=== PATIENT | male | born 1990 | race Caucasian/White ===

== ENCOUNTER 2025-01-02 01:26 | Outpatient (BNV) | payer SELFPAY | END 2025-01-02 11:25 | PROVIDERS: Admitting Provider Psychiatry & Neurology Psychiatry; Visit Provider Radiology Diagnostic Radiology | DX: S69.91XA Unspecified injury of right wrist, hand and finger(s), initial encounter (principal); S69.92XA Unspecified injury of left wrist, hand and finger(s), initial encounter; S00.80XA Unspecified superficial injury of other part of head, initial encounter; R23.3 Spontaneous ecchymoses | CPT/HCPCS: 70150; 73110 ==

== ENCOUNTER 2025-01-02 01:26 | Inpatient (IN) | payer MEDICAID, SELFPAY ==
--- NOTE | ~2025-01-02 | XR_ITS ---
EXAMINATION: X-ray wrist, bilaterally. CLINICAL INFORMATION: Injury. TECHNIQUE: PA, oblique and lateral views. Scaphoid projections, both wrists. COMPARISON: None FINDINGS: The carpal bones are intact. Normal alignment. The metacarpal bones are intact. Distal radius and ulna are intact. No lytic or blastic lesions. No subcutaneous emphysema. XR/XR Wrist Surinder min 3V IMPRESSION: Right no acute fracture or dislocation. Electronically signed by: Jey Gustafson MD 01/02/2025 11:50 AM EDT
--- NOTE | ~2025-01-02 | XR_ITS ---
EXAMINATION: XR FACIAL BONES CLINICAL INFORMATION: Minor Injury Right religious, bruising COMPARISON: None available. TECHNIQUE: AP, lateral, Joshua and Town's view FINDINGS: No acute cortical disruption. No air-fluid levels in the well pneumatized paranasal sinuses. XR/XR facial bones min 3V IMPRESSION: No acute fracture Electronically signed by: Jey Gustafson MD 01/02/2025 11:46 AM EDT
[2025-01-02 01:55] VITALS: BP 151/91; PULSE 82; RESP 16; TEMP 36.5; O2SAT 99; BMI 22.0
--- NOTE | 2025-01-02 05:14 | PC.ADMIT ---
At 0150, Oswaldo who is an Mozambican speaking 34 year old male transferred from [facility] to [facility] on a CV for treatment of psychosis. Pt was brought in via EMS and [place] [employer] who found him on the side of the highway laying on the ground. Pt became erratic and combative which prompted the initiation of 4 point restraint with IM Zyprexa and Valium on arrival to [facility]. (01/01 around 0400) Afterwards, he remained calm, slept, and had no restraints since. Psych history includes him being recently seen at [facility] in [place], [place] where he had a safety plan in place. He called police during a crisis asking to be brought to [facility] where he was seen and discharged about a month ago. ? Skin check completed which revealed bruising, and superficial lacerations on bilateral wrists and ankles from restraints and a large healing scar on his back he reports is unrelated. No physical complaints or pain reported. Tox screen was positive for benzodiazepines and THC, but currently denies any substance use. Reports occasional ETOH use and has no more than one to two drinks at a time. ?I?m not a druggie and I know when to stop, unlike my father.? No signs/symptoms of withdrawal. Reports only smoking around a half a pack/month, expresses desire for smoking cessation. Declined nicotine replacement at this time.? During admission, he is guarded but reports being anxious and that his speech becomes more pressured as anxiety increases, stating, ?You guys will know because sometimes it?s hard for me to keep up with myself.? His speech was normal. Thought process is somewhat disorganized and is easily distracted. He is calm, cooperative, and is short with responses at times but is overall pleasant, stating ?I?ll go wherever you tell me. I?m here to do whatever the process is and follow the rules.?? Reports grief from loss as his trauma history. No known active medical problems, concerns, or on any medications.? The goal for this admission is to establish providers and initiate a medication regimen if needed. Maintained pt safety and placed on 5 minute checks overnight until assessment is completed by the provider. Admission complete, except for signing safety tool, treatment plan, belongings, and phone access for contacts.
[2025-01-02 07:20] VITALS: BP 118/75; PULSE 86; RESP 16; TEMP 36.4; O2SAT 99
--- NOTE | 2025-01-02 08:45 | P.HPPS_ITS ---
HPI Date of Service: 01/02/25 Chief Complaint: Unspecified Psychosis HPI Subjective Notes: Abdullahi Warning Narrative: per crisis eval, pt was BIBA and police [place] having [place] [address]lying down in the position on the side of the road. he was described as erratic and combative, with flight of ideas and repetitive statements. he was restrained on arrival at the ED. he was described as exhibiting paranoia and distraction in ED, as well as disorganized thoughts. per family, pt has been deteriorating, with an assessment at [facility] and also and assessment in [place] [facility] recently. family reports over the past several months he has become paranoid that someone is following him and has the intention to harm his loved ones. he has been calling his people randomly to assure himself that they are safe. per medical eval in ED, pt was given IMs of zyprexa 10 mg and valium 10 mg in ED due to violent, aggressive behaviors. mild metabolic disturbances corrected with IV fluids in ED. on interview with MD at [facility], pt was hyperverbal, grandiose, and paranoid; he was not agitated, aggressive, combative, or violent, however. detailed discussion held re potential araseli Dx and the various medications indicated. abdullahi warning was provided. rationale for observation over the next several days provided, as well as explanation for how his condition may have improved so substantially in the past day or so (IM medication). pt minimized any substance use issues, denying a problem with alcohol (per sister, pt has h/o DUI). he denied any mental illness aside from anxiety, and explained events as people responding poorly to his anxiety attacks. he signed a 3-day notice. he appeared to place trust in his sister, who is a pediatric STEAM DISTRIBUTION SUPERVISOR, and stated he would consult with her about the medications. we agreed to meet again tomorrow to discuss next steps. Past Psychiatric History: hosps: denies prior. per family, pt has been hospitalized in the past. SA: denies SIB: enies outpt: 2018 grief counseling after the loss of an uncle, for 3-4 months. none otherwise. Medical Evaluation Reviewed: Yes PMF Narrative: none Family History: father - alcohol per sister, bipolar disorder on both sides of the family Social History: some college. 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 lives in his own house with his father, aunt, cousin, and a roommate. he reports he is the caregiver for his father. Substance History: tobacco - 5 cigs/day alcohol - 2 drinks twice weekly. per sister pt has h/o AUD. pt acknowledges h/o DUI. cannabis - pt reports none in 3-4 weeks. benzos - denies use. believes positive utox due to his having received valium IM in the ED. denies use of other drugs or substances. Trauma History: denies Diagnostics Vital Signs (24Hr): Vital Signs - 24 hr 01/02/25 01:55 01/02/25 07:20 Temperature 97.7 F 97.6 F Pulse Rate 82 86 Respiratory Rate 16 16 Blood Pressure 151/91 H 118/75 Pulse Oximetry 99 99 Oxygen Delivery Method Room Air Room Air BMI result Body Mass Index 22.0 Meds/Allergies Allergies Allergies Allergy/AdvReac Type Severity Reaction Status Date / Time Unable to Assess Allergy Verified 01/02/25 06:12 Mental Status Exam Mental Status Exam Narrative: adequately dressed and groomed. cooperative. no PMA/PMR. incr rate and amount of speech, decr latency. thoughts generally linear but spontaneously digressive, grandiose, possibly delusional. affect constricted, hyper-intense, non-labile. mood pleasant. denies SI/SIBI/HI/AVH. Assessment & Plan Assessment & Plan (1) Araseli: Status: Acute Code(s): F30.9 - Manic episode, unspecified (2) Alcohol use disorder: Status: Acute Code(s): F10.90 - Alcohol use, unspecified, uncomplicated Plan various mood stabilizers discussed, MD encouraged lithium trial. pt planned to discuss with his sister, who is in the health professions. will reconvene tomorrow re decision and next steps. Patient educated on: diagnosis, medication risk/benefits and substance abuse Reason for continued inpatient stay Substantial Risk for: harm to self, harm to others, inability to function and rapid decompensation Statement Statement: I have reviewed the history and physical and performed a pertinent examination on my patient. No changes have occurred unless specified. If the History and Physical was not performed prior to admission, the Hospitalist's service will be consulted for completing the admission physical. Time Spent With Patient Time: Total time managing care of this patient today __55__ minutes.
--- NOTE | 2025-01-02 10:32 | P.CONHOSP_ITS ---
History of Present Illness Data of Consult Service Date: 01/02/25 Primary Care Provider: Unknown Physician HPI Reason for consult: Medical consult 34-year-old male who was admitted from [facility] after he was brought to the hospital by the state police when he was found curled on the side of the road in a position. He became combative and required chemical and physical restraints. On exam he is calm, cooperative with exam. He denies any shortness of breath, chest pain, dizziness, lightheadedness or any other concerning symptoms except for bruising on both of his wrists as well as the side of his roman catholic. He reports that these injuries occurred while he was being restrained. He has decreased and painful range of motion to the right wrist, able to flex and extend all of his fingers. No obvious deformities noted. The right side of his temporal has a quarter-sized bruise. No increased swelling, no changes in his vision, no headaches no dizziness or any other concerning symptoms. On exam his bicarb was noted to be 8 he received 1 L of IV fluids otherwise his labs were unremarkable. He denies any history of medical problems denies any home medications. Review of Systems Review of Systems: Denies any shortness of breath, chest pain, dizziness, lightheadedness, abdominal pain or discomfort, nausea vomiting or diarrhea PMFSH Social History Household Members: Family Housing: House Do you presently have visiting nurse or other home services: No Patient Tobacco Use Status: Current someday Tobacco user Tobacco use type: Cigarette Smoked in Last 30 Days: Yes e-Cigarette/Vaping Use: Never Used Patient Interested in Nicotine Replacement: No Patient Given Instructions on How to Stop Smoking: Yes Date Education Initiated: 01/02/25 Second Hand Smoke Exposure: No Currently Displaying Signs/Symptoms of Drug Intoxication Withdrawal: No Have you been hit, kicked, punched, or otherwise hurt by someone within the past year? If so, by whom?: No Do you feel safe in your current relationship?: No Current Relationship Is there a partner from a previous relationship who is making you feel unsafe now?: No Are you made to feel afraid or neglected: No Advance Directives: No Advance Directives Information Provided: Yes Do you have thoughts of harming others: None Do you have a plan to hurt others: No Plan Recently lost weight without trying: No How much weight loss: Not applicable Eating poorly because of decreased appetite: No Nutrition screen score: 0 Nutrition Risks: No Nutritional Risk Poor oral hygiene: No Meds Allergies Allergy/AdvReac Type Severity Reaction Status Date / Time Unable to Assess Allergy Verified 01/02/25 06:12 Active Medications: Current Medications Acetaminophen (Acetaminophen 325 Mg Tablet) 650 mg PO Q6H PRN PRN Reason: Headache/Pain, Scale 1-10 Al Hydroxide/Mg Hydroxide (Magnesium Hydrox/Alum Hydrox 30 Ml Oral.Susp) 30 ml PO Q6H PRN PRN Reason: Heartburn/Nausea Hydroxyzine HCl (Hydroxyzine Hcl 25 Mg Tablet) 25 mg PO Q6H PRN PRN Reason: mild anxiety Magnesium Hydroxide (Milk Of Magnesia 30 Ml Oral.Susp) 30 ml PO DAILY PRN PRN Reason: Constipation Nicotine Polacrilex (Nicotine Polacrilex 2 Mg Gum) 4 mg BUCCAL Q2H PRN PRN Reason: Nicotine Cravings Trazodone HCl (Trazodone Hcl 50 Mg Tablet) 50 mg PO BEDTIME MRX1 PRN PRN Reason: Insomnia Physical Exam Vital Signs and Narrative: Vital Signs: Last Vital Signs Temp 97.6 F 01/02/25 07:20 Pulse 86 01/02/25 07:20 Resp 16 01/02/25 07:20 BP 118/75 01/02/25 07:20 Pulse Ox 99 01/02/25 07:20 O2 Del Method Room Air 01/02/25 07:20 BMI result Body Mass Index 22.0 Alert and oriented X3, able to give good history. Neuro: CN II-X11 intact, no deficits, visual acuity intact EYES: PERRLA, EOM intact ENT: Hearing intact, lips moist. No epistaxis Cardiac: S1 S2 RRR, No ectopy Pulmonary: lungs clear to auscultation, No increased WOB. Abdominal: BS active in all 4 quadrants, no guarding or tenderness MSK: Strength 5/5 upper and lower extremities : Deferred Extremities: No edema in lower extremities Psych: mood stable, Quiet and cooperative. Skin: Warm and dry, some scab scratches nose on bilateral wrists, bruising extending from the wrist to the bottom 1/3 of the forearm on both arms Quarter-sized bruise on right roman catholic, no swelling. Assessment and Plan (1) Wrist pain, acute: Status: Acute Plan Psychosis, unspecified Treatment per psychiatric team Bruising to bilateral wrists, history of trauma. Bruising to right temporal Imaging to rule out acute fracture. Tylenol as needed Thank you for allowing me to participate in the care of this patient. Signing off at this time. Please reconsult of any acute concerns or issues arise
[2025-01-02 13:44] LABS: Amphetamine Screen Urine Not Detected (Not Detect); Barbiturates, Urine Not Detected (Not Detect); Benzodiazepines Screen Urine POSITIVE (Not Detect); Buprenorphine Scr Not Detected (Not Detect); Cannabinoid Screen Urine POSITIVE (Not Detect); Cocaine Screen Urine Not Detected (Not Detect); Fentanyl, urine Not Detected (Not Detect); Methadone Screen, Urine Not Detected (Not Detect); Opiate Screen Urine Not Detected (Not Detect); Oxycodone Screen Urine Not Detected (Not Detect); Phencyclidine Screen Urine Not Detected (Not Detect)
[2025-01-02] MEDS: Nicotine Polacrilex 2 MG GUM BUCCAL ×2 (16:35→23:15)
[2025-01-02 19:20] VITALS: BP 147/91; PULSE 98; RESP 16; TEMP 36.2; O2SAT 100
[2025-01-03 07:53] VITALS: BP 113/78; PULSE 90; RESP 16; TEMP 36.5; O2SAT 100
[2025-01-03 08:22] LABS: Estimated Average Glucose 100 mg/dL; Hemoglobin A1c % 5.1 % (<6.0)
[2025-01-03 08:30] LABS: Cholesterol 177 mg/dL (<200); HDL Cholesterol 42 mg/dL (>40); LDL Cholesterol Calculated 121 mg/dL (<100); Triglycerides 73 mg/dL (<150)
[2025-01-03] MEDS: Nicotine Polacrilex 2 MG GUM BUCCAL ×3 (08:33→23:50)
[2025-01-03 08:46] LABS: Free T4 (Free Thyroxine) 1.02 ng/dL (0.71-1.85); Thyroid Stimulating Hormone 0.73 uIU/mL (0.32-4.0)
[2025-01-03 09:00] LABS: Folate 7.9 ng/mL (> or = 4.0); Vitamin B12 572 pg/mL (200-900)
--- NOTE | 2025-01-03 14:19 | P.PNPSI_ITS ---
Subjective Subjective Date of Service: 01/03/25 Reason For Visit: Unspecified Psychosis Interim History: slept well. doesn't want medications, wants to engage in therapy. awaiting expiry of 3-day on wednesday so he can discharge. per staff, doesn't want meds. attending groups. denies Sx. c/o arm swelling 2/2 restraint at OSH. xrays - no Fx. slept 8 hours. Mental Status Exam Mental Status Exam Narrative: adequately dressed and groomed. cooperative. no PMA/PMR. incr rate and amount of speech, decr latency. thoughts generally linear but spontaneously digressive, grandiose, possibly delusional. affect constricted, hyper-intense, non-labile. mood euthymic. no SI/SIBI/HI/AVH expressed. Diagnostics Vital Signs (24Hr): Vital Signs - 24 hr 01/02/25 19:20 01/03/25 07:53 Temperature 97.2 F 97.7 F Pulse Rate 98 90 Respiratory Rate 16 16 Blood Pressure 147/91 H 113/78 Pulse Oximetry 100 100 Oxygen Delivery Method Room Air Room Air BMI result Body Mass Index 22.0 Labs Labs: Laboratory Results - last 48 hr 01/02/25 01/03/25 13:20 07:38 Estimat Average Glucose 100 Hemoglobin A1c % 5.1 Triglycerides 73 Cholesterol 177 LDL Cholesterol, Calc 121 H HDL Cholesterol 42 Vitamin B12 572 Folate 7.9 TSH 0.73 Free T4 1.02 Urine Opiates Screen Not Detected Ur Buprenorphine Scrn Not Detected Ur Oxycodone Screen Not Detected Urine Methadone Screen Not Detected Urine Fentanyl Screen Not Detected Ur Barbiturates Screen Not Detected Ur Phencyclidine Scrn Not Detected Ur Amphetamines Screen Not Detected U Benzodiazepines Scrn POSITIVE H Urine Cocaine Screen Not Detected U Marijuana (THC) Screen POSITIVE H Imaging Radiology Impressions: ITS Impressions Face X-Ray 01/02/25 11:25 IMPRESSION: No acute fracture Electronically signed by: Jey Gustafson MD 01/02/2025 11:46 AM EDT RP Wrist X-Ray 01/02/25 11:25 IMPRESSION: Right no acute fracture or dislocation. Electronically signed by: Jey Gustafson MD 01/02/2025 11:50 AM EDT RP Medications Medications Current Medications Acetaminophen (Acetaminophen 325 Mg Tablet) 650 mg PO Q6H PRN PRN Reason: Headache/Pain, Scale 1-10 Al Hydroxide/Mg Hydroxide (Magnesium Hydrox/Alum Hydrox 30 Ml Oral.Susp) 30 ml PO Q6H PRN PRN Reason: Heartburn/Nausea Hydroxyzine HCl (Hydroxyzine Hcl 25 Mg Tablet) 25 mg PO Q6H PRN PRN Reason: mild anxiety Magnesium Hydroxide (Milk Of Magnesia 30 Ml Oral.Susp) 30 ml PO DAILY PRN PRN Reason: Constipation Nicotine Polacrilex (Nicotine Polacrilex 2 Mg Gum) 2 mg BUCCAL Q1H PRN PRN Reason: Nicotine Cravings Last Admin: 01/03/25 08:33 Dose: 2 mg Trazodone HCl (Trazodone Hcl 50 Mg Tablet) 50 mg PO BEDTIME MRX1 PRN PRN Reason: Insomnia Allergies Allergies Allergy/AdvReac Type Severity Reaction Status Date / Time Unable to Assess Allergy Verified 01/02/25 06:12 Assessment & Plan Assessment & Plan (1) Araseli: Status: Acute Code(s): F30.9 - Manic episode, unspecified (2) Alcohol use disorder: Status: Acute Code(s): F10.90 - Alcohol use, unspecified, uncomplicated Plan 01/02: various mood stabilizers discussed, MD encouraged lithium trial. pt planned to discuss with his sister, who is in the health professions. will reconvene tomorrow re decision and next steps. 01/03: some thought disorder, vague, disorganized a bit. declines medications, says he wants to try therapy first. awaiting expiry of 3-day notice on wednesday. Reason for continued inpatient stay Substantial Risk for: harm to self, inability to function and rapid decompensa tion Time Spent With Patient Time: Total time managing care of this patient today __25__ minutes.
[2025-01-03 19:55] VITALS: BP 119/78; PULSE 81; RESP 16; TEMP 36.1; O2SAT 99
[2025-01-04 07:57] VITALS: BP 144/88; PULSE 88; RESP 16; TEMP 36.4; O2SAT 100
[2025-01-04] MEDS: Nicotine Polacrilex 2 MG GUM BUCCAL ×4 (08:26→23:38)
--- NOTE | 2025-01-04 11:18 | PM.PSYDC ---
DS: Providers Provider Date of Service: 01/04/25 Date of admission: 01/02/25 01:26 Date of discharge: 01/05/25 Primary care physician: Unknown Physician Consults: 01/02/25 06:12 Consult to Hospitalist Routine Comment: Consulting Provider: [facility] Reason For Exam: OSH admission DS: Diagnosis Discharge Diagnosis (1) Araseil: Status: Acute (2) Alcohol use disorder: Status: Acute Mental Status Exam Mental Status Exam Narrative: adequately dressed and groomed. cooperative. no PMA/PMR. incr rate, nml amount of speech, decr latency. thoughts generally linear. affect flexible, hyper-intense, non-labile. mood i'm good. i feel happy. bubbly. a little excited. no SI/SIBI/HI/AVH. Data Data Completed and Pending Completed studies during hospitalization [Text1]: 01/02/25 01/03/25 13:20 07:38 Estimat Average Glucose 100 Hemoglobin A1c % 5.1 Triglycerides 73 Cholesterol 177 LDL Cholesterol, Calc 121 H HDL Cholesterol 42 Vitamin B12 572 Folate 7.9 TSH 0.73 Free T4 1.02 Urine Opiates Screen Not Detected Ur Buprenorphine Scrn Not Detected Ur Oxycodone Screen Not Detected Urine Methadone Screen Not Detected Urine Fentanyl Screen Not Detected Ur Barbiturates Screen Not Detected Ur Phencyclidine Scrn Not Detected Ur Amphetamines Screen Not Detected U Benzodiazepines Scrn POSITIVE H Urine Cocaine Screen Not Detected U Marijuana (THC) Screen POSITIVE H Imaging Diagnostic Imaging Impressions Face X-Ray 01/02/25 11:25 IMPRESSION: No acute fracture Electronically signed by: Jey Gustafson MD 01/02/2025 11:46 AM EDT RP Wrist X-Ray 01/02/25 11:25 IMPRESSION: Right no acute fracture or dislocation. Electronically signed by: Jey Gustafson MD 01/02/2025 11:50 AM EDT RP DS: Summary Hospital Course Hospital Course: per 01/02 admission note: HPI Subjective Notes: Abdullahi Warning Narrative: per crisis eval, pt was BIBA and police after having been [place] [address]/lying down in the position on the side of the road. he was described as erratic and combative, with flight of ideas and repetitive statements. he was restrained on arrival at the ED. he was described as exhibiting paranoia and distraction in ED, as well as disorganized thoughts. per family, pt has been deteriorating, with an assessment at [facility] and also and assessment in [place] [facility] recently. family reports over the past several months he has become paranoid that someone is following him and has the intention to harm his loved ones. he has been calling his people randomly to assure himself that they are safe. per medical eval in ED, pt was given IMs of zyprexa 10 mg and valium 10 mg in ED due to violent, aggressive behaviors. mild metabolic disturbances corrected with IV fluids in ED. on interview with MD at [facility], pt was hyperverbal, grandiose, and paranoid; he was not agitated, aggressive, combative, or violent, however. detailed discussion held re potential araseli Dx and the various medications indicated. abdullahi warning was provided. rationale for observation over the next several days provided, as well as explanation for how his condition may have improved so substantially in the past day or so (IM medication). pt minimized any substance use issues, denying a problem with alcohol (per sister, pt has h/o DUI). he denied any mental illness aside from anxiety, and explained events as people responding poorly to his anxiety attacks. he signed a 3-day notice. he appeared to place trust in his sister, who is a pediatric EMAIL DESIGNER, and stated he would consult with her about the medications. we agreed to meet again tomorrow to discuss next steps. Past Psychiatric History: hosps: denies prior. per family, pt has been hospitalized in the past. SA: denies SIB: enies outpt: 2018 grief counseling after the loss of an uncle, for 3-4 months. none otherwise. Medical Evaluation Reviewed: Yes PMFSH Narrative: none Family History: father - alcohol per sister, bipolar disorder on both sides of the family Social History: some college. 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 lives in his own house with his father, aunt, cousin, and a roommate. he reports he is the caregiver for his father. Substance History: tobacco - 5 cigs/day alcohol - 2 drinks twice weekly. per sister pt has h/o AUD. pt acknowledges h/o DUI. cannabis - pt reports none in 3-4 weeks. benzos - denies use. believes positive utox due to his having received valium IM in the ED. denies use of other drugs or substances. Trauma History: denies Precis: 01/02: various mood stabilizers discussed, MD encouraged lithium trial. pt planned to discuss with his sister, who is in the health professions. will reconvene tomorrow re decision and next steps. 01/03: slept well. doesn't want medications, wants to engage in therapy. awaiting expiry of 3-day on wednesday so he can discharge. per staff, doesn't want meds. attending groups. denies Sx. c/o arm swelling 08/13 restraint at OSH. xrays - no Fx. slept 8 hours. some thought disorder, vague, disorganized a bit. 01/04: no change in presentation. calm, but gives off the impression he is trying very hard to make sure one believes he is normal and fine. doesn't want medications. will follow up with his own aftercare. denies safety concerns. sleeping well. 01/05: stable and safe overnight. discharged to outpt F/U as per plan. Time Spent with Patient Time attestation: Total time managing care of this patient today __35__ minutes. Discharge Plan Discharge Anticipated Discharge Date/Time: 01/05/25 10:00 Patient Disposition: Home, Self-Care Discharge Diagnosis: Araseli Alcohol Use Disorder Referrals: [facility] [Provider Group] - 1 Week Referral Note: 01-03-25 [facility] was added to patients chart. Please call [phone] to schedule a follow up appt within 7-10 days of discharge. No release or PCP on file. Discharge Orders: Discharge Order (Routine); Ordered 01/05/25 Ordered By: Lamberto Ricci Diet: Advance to usual diet Activity on Discharge: As tolerated Stand Alone Forms: Patient Portal Discharge page, Community Support Print Language: Korean Care Plan Goals: remain safe, stable, and sober in the outpatient treatment setting Health Concerns: none Plan of Treatment: seek out mental health services in your area. begin treatment with a mood stabilizer: lithium, depakote, or tegretol. Assessment: not at imminent risk of harm to self or others; substantial risk of rapid decompensation Discharge Date/Time: 01/05/25 08:29
[2025-01-04 19:22] VITALS: BP 142/85; PULSE 76; RESP 16; TEMP 36.7; O2SAT 98
[2025-01-05] MEDS: Nicotine Polacrilex 2 MG GUM BUCCAL (07:54)
[2025-01-05 07:55] VITALS: BP 141/83; PULSE 85; RESP 16; TEMP 36.3; O2SAT 99
== END 2025-01-05 08:29 | disposition home or self-care (01) | DRG 753 ==
PROVIDERS: Admitting Provider Psychiatry & Neurology Psychiatry; Visit Provider Psychiatry & Neurology Psychiatry
DX: F30.9 Manic episode, unspecified (principal); F10.90 Alcohol use, unspecified, uncomplicated; F17.210 Nicotine dependence, cigarettes, uncomplicated; M25.531 Pain in right wrist; M25.532 Pain in left wrist; Z71.6 Tobacco abuse counseling
CPT/HCPCS: 36415; 70150; 73110; 80061; 80307; 82607; 82746; 83036; 84439; 84443

== ENCOUNTER → 2025-01-02 01:26 | Outpatient (BNV) | payer OTHER, SELFPAY | PROVIDERS: Admitting Provider Psychiatry & Neurology Psychiatry; Visit Provider Psychiatry & Neurology Psychiatry | DX: F30.9 Manic episode, unspecified (principal); F10.90 Alcohol use, unspecified, uncomplicated | CPT/HCPCS: 99232; 99233 ==

== ENCOUNTER → 2025-01-02 01:26 | Outpatient (BNV) | payer SELFPAY | PROVIDERS: Admitting Provider Psychiatry & Neurology Psychiatry; Visit Provider Nurse Practitioner Family | DX: M25.539 Pain in unspecified wrist (principal) | CPT/HCPCS: 99221 ==